=== PATIENT | male | born 1960 | race Caucasian/White ===

== ENCOUNTER → 2024-08-31 07:17 | Outpatient (REF) | payer OTHER, SELFPAY | LOC: HWRAD 07:17 | PROVIDERS: ATTENDING PHYSICIAN Student in an Organized Health Care Education/Training Program | DX: E04.9 Nontoxic goiter, unspecified (principal) | CPT/HCPCS: 76536 ==

== ENCOUNTER 2024-11-15 06:04 | Day surgery (SDC) | payer OTHER, SELFPAY ==
[2024-11-03 09:44] LABS: Hemoglobin 12.6 g/dL (13.0-18.0); Mean Corp Hgb Conc. 32.3 g/dL (33.0-37.0); Mean Corpuscular Volume 89.9 fL (80.0-94.0); Platelet Count 296 10^3/uL (130-400); Red Blood Cell Count 4.34 10^6/uL (4.70-6.10); Red Cell Dist. Width 13.1 % (11.5-14.5); White Blood Cell Count 5.7 10^3/uL (4.8-10.8)
[2024-11-03 09:54] LABS: INR 1.03
[2024-11-03 09:55] LABS: APTT 31.7 Sec (23.4-35.0)
[2024-11-03 12:08] LABS: ALT (SGPT) 51 U/L (0-50); AST (SGOT) 35 U/L (17-59); Albumin 4.4 g/dl (3.5-5.0); Alkaline Phosphatase 91 U/L (38-126); Blood Urea Nitrogen 15 mg/dl (9-20); Carbon Dioxide 28 mmol/L (22-30); Chloride 102 mmol/L (98-107); Glucose 80 mg/dl (70-99); Potassium 4.7 mmol/L (3.5-5.1); Sodium 141 mmol/L (135-145); Total Bilirubin 0.3 mg/dl (0.2-1.3); Total Protein 6.9 g/dl (6.3-8.2); eGFR > 60.00
[2024-11-03 13:58] VITALS: BMI 27.7
[2024-11-15] VITALS (13 sets, daily range): BP systolic 134–173; BP diastolic 76–99; BMI 27.8
[2024-11-15] MEDS: TYLENOL 1000 MG PO (12:30)
[2024-11-15] MEDS: NEURONTIN 300 MG PO (12:30)
[2024-11-15] MEDS: HEPARIN 5000 UNITS SC (12:32)
--- NOTE | 2024-11-15 14:44 | OR.RPT ---
Operative Report
Operative Report
DATE OF OPERATION: November 15, 2024
PREOPERATIVE DIAGNOSIS: Right Thyroid Nodule - E041
POSTOPERATIVE DIAGNOSIS: Right multinodular substernal goiter
SURGEON: Master Tinoco M.D.
OPERATION: Resection of the right substernal multinodular goiter - 00112
ANESTHESIA: GET
ESTIMATED BLOOD LOSS: 2 cc
DRAINS: None
SPECIMEN: right total thyroid lobe and isthmus
FINDINGS: Right multinodular substernal goiter
COMPLICATIONS:� None
PROCEDURE:
The patient was taken to the operating room and placed in the usual supine position. After adequate general endotracheal anesthesia was established, the patient�s neck was extended, prepped, and draped in the typical sterile fashion. A 5 cm
transcervical incision was made two fingerbreadths above the sternal notch. The skin incision was made with the #15 blade, which was taken through the skin into the subcutaneous tissue. The underlying platysma muscle was divided, and subplatysmal
flaps were created superiorly to the thyroid cartilage and inferiorly to the sternal notch. Strap muscles were identified and at the midline.
Attention was turned to the patient�s right thyroid lobe. The right thyroid lobe was mobilized medially. During this process, the right middle thyroid vein and inferior thyroid artery were dissected and ligated with Ligasure. There was a substernal
extension, which was delivered out of the mediastinum through the cervical incision. Next, the right superior pole was taken down by dissecting and transecting the superior pole vessels with a Ligasure. The right thyroid lobe was mobilized medially.
During this process, the right recurrent laryngeal nerve was identified and preserved throughout its entire course. The right superior parathyroid gland was identified and preserved. The right thyroid lobe with isthmus was resected off the trachea
and sent to the pathology department.
After obtaining adequate hemostasis, the strap muscle was approximated with #3-0 Vicryl in a running fashion, and platysma muscles were reapproximated with #3-0 Vicryl in an interrupted fashion, and the skin was approximated with #4-0 Monocryl in a
running subcuticular fashion. Steri-strips and sterile dressings were placed. The patient tolerated the procedure well. The final instrument, needle, and sponge counts were correct.
[2024-11-15] MEDS: DILAUDID 0.25 MG IV (15:08)
[2024-11-15] MEDS: DILAUDID 0.5 MG IV ×2 (15:26→15:47)
[2024-11-15] MEDS: ROXICODONE 5 MG PO (17:18)
== END 2024-11-15 17:25 | disposition home or self-care (01) ==
LOC: SDS 06:04
PROVIDERS: ATTENDING PHYSICIAN Surgery; FAMILY PHYSICIAN Student in an Organized Health Care Education/Training Program
DX: E04.2 Nontoxic multinodular goiter (principal)
CPT/HCPCS: 60271; 88307; 36415; 80053; 85027; 85610; 85730; C1776

== ENCOUNTER → 2025-07-12 13:28 | Outpatient (REF) | payer MEDICARE, OTHER, SELFPAY | LOC: SDSPAT 13:28 | PROVIDERS: ATTENDING PHYSICIAN Internal Medicine Cardiovascular Disease; FAMILY PHYSICIAN Student in an Organized Health Care Education/Training Program; OTHER PHYSICIAN Internal Medicine | DX: I48.0 Paroxysmal atrial fibrillation (principal) | CPT/HCPCS: 93005 ==

== ENCOUNTER 2025-07-14 06:49 | Day surgery (SDC) | payer MEDICARE, OTHER, SELFPAY ==
[2025-07-12 13:40] VITALS: BMI 28.7
--- NOTE | 2025-07-14 10:19 | ITS.CL.CARDI ---
[facility] - Cardioversion
Cardioversion
Procedure Report:
Date of Procedure: 07/14/25.
Procedure: Cardioversion.
Indication: Symptomatic atrial fibrillation.
Performing Physician: Gini Levine MD
Technique: The patient was brought to the holding area. Signed informed consent was obtained. A time out was called and performed. The patient was sedated by a member of the anesthesia service. ELISE was done to rule out the suspicion of intracardiac
thrombus. Anticoagulation status was reviewed and was appropriate. R-2 pads were placed anteriorly and posteriorly. A 200J followed by 300 J synchronized biphasic shock restored normal sinus rhythm without significant bradycardia. There were no
complications.
Conclusion: Uncomplicated cardioversion from atrial fibrillation to sinus rhythm.
Recommendation: Routine post cardioversion care. Continue continuous churn buttermaker anticoagulation.
cc: [facility]
== END 2025-07-14 09:40 | disposition home or self-care (01) ==
LOC: CATH 06:49
PROVIDERS: ATTENDING PHYSICIAN Internal Medicine Cardiovascular Disease; FAMILY PHYSICIAN Student in an Organized Health Care Education/Training Program; REFERRING PHYSICIAN Internal Medicine
DX: I48.0 Paroxysmal atrial fibrillation (principal); R00.1 Bradycardia, unspecified; I10 Essential (primary) hypertension; M19.90 Unspecified osteoarthritis, unspecified site; Z85.828 Personal history of other malignant neoplasm of skin; Z86.0100 Personal history of colon polyps, unspecified; Z87.891 Personal history of nicotine dependence; Z79.01 Long term (current) use of anticoagulants
CPT/HCPCS: 93312; 93320; 93325; 92960; 93005